=== PATIENT | male | born 2000 | race African-American/Black ===

== ENCOUNTER 2023-08-09 15:52 | Emergency (ER) | payer OTHER ==
[~2023-08-09] VITALS: Ht 182.9 cm; Wt 105.2 kg
[2023-08-09 15:53] VITALS: BP 125/82; TEMP 97.2; O2SAT 99
[2023-08-09] MEDS ORDERED: LIDOCAINE 5% (LIDODERM) PATCH TD ONE (19:40)
[2023-08-09] MEDS ORDERED: KETOROLAC 60MG 2ML VIAL IM ONE (19:40)
[2023-08-09] MEDS ORDERED: predniSONE 20 MG TAB PO ONE (19:40)
[2023-08-09] MEDS ORDERED: TRAM50TA2 PO (20:28)
[2023-08-09] MEDS ORDERED: MEDR4PAK PO (20:28)
== END 2023-08-09 20:38 | disposition home or self-care (01) ==
LOC: M ED 15:52
DX: M54.50 Low back pain, unspecified (principal); Y93.B3 Activity, free weights; Z88.1 Allergy status to other antibiotic agents; Z79.899 Other long term (current) drug therapy
CPT/HCPCS: 72131; 96372; 99282; J1885; J7512

== ENCOUNTER 2023-12-23 17:21 | Emergency (ER) | payer OTHER ==
[~2023-12-23] VITALS: Ht 182.9 cm; Wt 105.8 kg
[~2023-12-23 17:21] MED LIST: MEDR4PAK PO; TRAM50TA2 PO
[2023-12-23 17:22] VITALS: BP 123/67; TEMP 98.8; O2SAT 98
== END 2023-12-23 23:23 | disposition left against medical advice (07) ==
LOC: M ED 17:21
DX: Z53.21 Procedure and treatment not carried out due to patient leaving prior to being seen by health care provider (principal)